=== PATIENT | male | born 1995 | race Caucasian/White ===

== ENCOUNTER 2016-07-23 08:24 | Emergency (ER) ==
[2016-07-23] MEDS ORDERED: NS 1,000 ML IV ONE ×2 (09:28→09:56)
[2016-07-23 09:44] LABS: BASO% 0.1 % (0.0-0.8); EOS# 0.03 X1000 (0.0-0.7); EOS% 0.3 % (0.0-10.0); HEMATOCRIT 49.3 % (42.0-52.0); HEMOGLOBIN 16.8 g/dL (14.0-18.0); LYMPH# 0.45 X1000 (1.2-3.4); LYMPH% 4.4 % (20.5-51.1); MANUAL DIFF NEEDED? NO; MCH 29.2 PG (27-31); MCHC 34.1 g/dL (33-37); MCV 85.7 FL (81-99); MONO# 0.46 X1000 (0.11-0.59); MONO% 4.5 % (1.7-9.3); MPV 8.8 FL (7.4-10.4); NEUT% 90.7 % (42.2-75.2); PLT 267 X1000 (130-400); RBC 5.75 XMIL (4.7-6.1)
[2016-07-23] MEDS ORDERED: ZOFRAN IV ONE (09:54)
[2016-07-23 09:57] LABS: AGAP 13; ALBUMIN 5.1 g/dL (3.5-5.0); ALKALINE PHOSPHATASE 110 U/L (32-122); AMYLASE 51 U/L (20-200); BUN 13 mg/dL (8-22); CALCIUM 9.9 mg/dL (8.8-10.2); CHLORIDE 99 mmol/L (98-107); COSMO 275; GOT 24 U/L (10-34); GPT 27 U/L (10-44); LIPASE 20 U/L (13-60); POTASSIUM 4.2 mmol/L (3.5-5.1); SODIUM 138 mmol/L (136-145); TCO2 26 mmol/L (25-35); TOTAL BILIRUBIN 0.94 mg/dL (0.20-1.00); TOTAL PROTEIN 8.3 g/dL (6.3-8.3)
--- NOTE | 2016-07-23 10:53 | PROVIDER DOCUMENTATION ---
HPI-Abdominal Pain/GI Problem - General Chief Complaint: N/V/D Stated Complaint: VOMITING BLOOD,NAUSEA,DIARRHEA,NO APPETITE Time Seen by Provider: 07/23/16 09:16 Source: patient Allergies/Adverse Reactions: Patient Allergies Allergy/AdvReac Type Severity Reaction Status Date / Time No Known Allergies Allergy Verified 07/23/16 09:22 Home Medications: Home Medication List Medication Instructions Recorded Confirmed Last Taken Type Ciprofloxacin HCl [Cipro] 500 mg PO BID #10 tablet 07/23/16 Unknown Rx Famotidine [Pepcid] 20 mg PO DAILY #20 tablet 07/23/16 Unknown Rx Metronidazole [Flagyl] 500 mg PO BID #20 tablet 07/23/16 Unknown Rx - History of Present Illness-ABD Nature of Presenting Problems: 20 year old WM presents with c/o nausea, vomiting and diarrhea for 4 days. pt report average 3 diarrhea a day and 1-3 episodes of vomiting a day. pt reports appetite due to associated nausea. pt reports he had one episode of blood "streaked" in his diarrhea and upon wiping on Thursday. Denies any additional episodes. Pt reports he was able to eat a ham and cheese sandwich last night, but vomited soon after and was able eat cereal this morning but vomited soon after. pt reports associated dizziness, lightheadedness with standing and walking from the supine position. pt denies travel out of country, sick exposures. denies abdominal pain, cramping. Review of Systems - Adult - REVIEW OF SYSTEMS - ADULT Constitutional: reports: no symptoms reported. denies: chills, fever, fatique Eyes: reports: no symptoms reported. denies: discharge, blurred vision, double vision, redness Ears, Nose, Mouth & Throat: reports: no symptoms reported. denies: ear discharge, ear pain, nose pain, loose teeth, throat pain, throat swelling Cardiovascular: reports: no symptoms reported. denies: chest pain, palpitations , syncope Respiratory: reports: no symptoms reported. denies: chronic cough, cough, shortness of breath, wheezing Gastrointestinal: reports: see HPI, hematemesis, diarrhea, nausea, rectal bleeding, vomiting. denies: abdominal pain, constipation, difficulty swallowing , poor appetite Genitourinary: reports: no symptoms reported. denies: dysuria, hematuria, urgency Musculoskeletal: reports: no symptoms reported. denies: bone pain, joint pain, joint swelling, neck pain Integumentary: reports: no symptoms reported. denies: hives, rash, skin sores/ ulcer Neurological: reports: see HPI, dizziness/vertigo. denies: ataxia, loss of balance, numbness, paresthesia, seizure, slurred speech, syncope, tremors Psychiatric: reports: no symptoms reported Endocrine: reports: no symptoms reported Hematologic/Lymphatic: reports: no symptoms reported Allergic/Immunologic: reports: no symptoms reported All Other Systems: Reviewed and Negative Past History - Adult - PAST MEDICAL HISTORY-ADULT Review of Records: reports: Old Records Reviewed, Nursing Assessment Review, Medications Reviewed, Social history reviewed & non-contributory. Major Childhood Illnesses: reports: denies history Cardiovascular: reports: denies history Respiratory: reports: denies history Gastrointestinal: reports: denies history Obstetrical/Gynecological: reports: denies history Genitourinary: reports: denies history Musculoskeletal: reports: denies history Neurological: reports: denies history Endocrine/Immune: reports: denies history Other Conditions: reports: denies history - FAMILY HISTORY Family History: reviewed, not pertinent - SOCIAL HISTORY Smoking: denies, non-smoker Substance Use: none/never Alcohol Use Frequency: never Physical Exam-General - PHYSICAL EXAM-ADULT Initial Vital Signs Reviewed: Yes - CONSTITUTIONAL General Appearance: appears well, alert, no apparent distress. negative: mild distress, moderate distress, severe distress - EYES Eyes: pink conjunctivae. negative: conjuctival exudate, pale conjunctivae, sclera injected, scleral icterus, subconjunctival hemorrhage - HEAD, EARS, NOSE, MOUTH & THROAT HENMT: normocephalic/atraumatic, moist mucous membranes, normal ENT inspection, TMs normal, pharynx normal. negative: pharyngeal erythema, tonsillar exudate, TM abnormal, TM obscurred by cerumen, frontal tenderness, maxillary tenderness - NECK Neck: non-tender, full range of motion, supple, normal inspection. negative: C- spine tenderness, limited range of motion, tender lateral, tender midline - RESPIRATORY Respiratory: chest non-tender, lungs clear, normal breath sounds, no pleuratic chest pain, no respiratory distress, no accessory muscle use. negative: respiratory distress, decreased breath sounds, accessory muscle use, crackles, rales, rhonchi, stridor, wheezing - CARDIOVASCULAR Cardiovascular: normal peripheral pulses, regular rate, rhythm, tachycardia. negative: no edema, no gallop, no JVD, no murmur - GASTROINTESTINAL (ABDOMEN) Abdominal Exam: normal bowel sounds, non tender, soft, no organomegaly, no pulsatile mass. negative: abnormal bowel sounds, distended, guarding, rigid, rebound, tenderness, hernia, mass, hepatomegaly, spleenomegaly, McBurney's point tenderness, Mariano's sign, obturator sign, psoas, Rovsing's sign - GENITOURINARY Male Genitalia: deferred Rectal Exam: deferred Hemoccult Exam: deferred - LYMPHATIC Lymphatic: negative: cervical node tenderness - MUSCULOSKELETAL Back Exam: normal inspection, no CVA tenderness, no vertebral tenderness. negative: CVA tenderness, decreased range of motion, swelling, vertebral tenderness Extremity: normal range of motion, non-tender, normal gait, normal inspection, no pedal edema, no calf tenderness, normal capillary refill. negative: deformity, erythema, inflammation Peripheral Pulses: radial (R): 3+, radial (L): 3+, dorsalis-pedis (R): 3+, dorsalis-pedis (L): 3+ - SKIN Integumentary: normal color, normal turgor, warm/dry. negative: pallor, petechiae, purpura, rash, swelling, tenderness - NEUROLOGIC Neurologic: grossly normal, no motor/sensory deficits - PSYCHIATRIC Psych/Mental Status: normal mood/affect, normal thought content, normal thought process, oriented x 3 Progress - PLAN OF CARE/RESULTS Progress/Plan/Lab Results: Laboratory Tests 07/23/16 07/23/16 07/23/16 09:19 09:19 11:17 WBC 10.13 RBC 5.75 Hgb 16.8 Hct 49.3 MCV 85.7 MCH 29.2 MCHC 34.1 RDW Std Deviation 12.7 Plt Count 267 MPV 8.8 Immature Gran % (Auto) 0.0 Neut % (Auto) 90.7 H Lymph % (Auto) 4.4 L [place] % (Auto) 4.5 Eos % (Auto) 0.3 Baso % (Auto) 0.1 Immature Gran # (Auto) 0.00 Neut # (Auto) 9.18 H Lymph # (Auto) 0.45 L [place] # (Auto) 0.46 Eos # (Auto) 0.03 Baso # (Auto) 0.01 Sodium 138 Potassium 4.2 Chloride 99 Carbon Dioxide 26 Anion Gap 13 BUN 13 Creatinine 0.9 Estimated GFR/1.73 m2 > 60 BUN/Creatinine Ratio 14 Glucose 92 Calculated Osmolality 275 Calcium 9.9 Total Bilirubin 0.94 AST 24 ALT 27 Alkaline Phosphatase 110 Total Protein 8.3 Albumin 5.1 H Globulin 3.2 Albumin/Globulin Ratio 1.6 Amylase 51 Lipase 20 Urine Source CLEAN CATCH Urine Color YELLOW Urine Turbidity CLEAR Urine pH 7.0 Ur Specific [place] 1.021 Urine Protein NEGATIVE Ur Glucose (Stick) NEGATIVE Ur Ketones (Stick) 20 A Urine Blood NEGATIVE Urine Nitrite NEGATIVE Urine Bilirubin NEGATIVE Urobilinogen Dipstick NORMAL Urine Leukocytes NEGATIVE Urine WBC (Auto) <10 Urine RBC (Auto) <10 U Epithel Cells (Auto) <10 Urine Bacteria (Auto) NEGATIVE Orders Category Date Time Status Saline Loc DIRECTED Care 07/23/16 09:27 Active NPO Diet 07/23/16 09:27 Completed FLAT/UPRIGHT ABD/1 VIEW CHEST [RAD] Stat Exams 07/23/16 09:56 Draft AMYLASE [CHEM] Stat Lab 07/23/16 09:19 Completed CBC WITH ELECTRONIC DIFF [HEME] Stat Lab 07/23/16 09:19 Completed COMPREHENSIVE METABOLIC PANEL [CHEM] Stat Lab 07/23/16 09:19 Completed Flu Swab [INFLUENZA SCREEN A/B] Stat Lab 07/23/16 08:32 Completed LIPASE [CHEM] Stat Lab 07/23/16 09:19 Completed URINALYSIS W/POSS RFLX CULT [URINALYSIS] Stat Lab 07/23/16 11:17 Completed 0.9% Sodium Chloride Inj [Ns] 1,000 ml Med 07/23/16 09:28 Discontinued IV 999 mls/hr 0.9% Sodium Chloride Inj [Ns] 1,000 ml Med 07/23/16 09:56 Discontinued IV 999 mls/hr Famotidine [Pepcid] Med 07/23/16 11:47 Discontinued 20 mg PO NOW ONE Ondansetron [Zofran] Med 07/23/16 09:54 Discontinued 4 mg IV NOW ONE Vital Signs - 24 hr 07/23/16 07/23/16 07/23/16 08:29 09:29 11:59 Temperature 97.7 F 98.8 F Pulse Rate 97 H 90 Pulse Rate [ 95 H Sitting] Pulse Rate [ 113 H Standing] Pulse Rate [ 93 H Supine] Respiratory 18 18 Rate Blood Pressure 114/71 126/73 Blood Pressure 128/50 [Sitting] Blood Pressure 108/65 [Standing] Blood Pressure 124/65 [Supine] O2 Sat by Pulse 100 [address] Oximetry Review[address] case [address] Vann, agrees with plan of care and treatment. - XRAY 1 XRAY Study: Chest, Abdomen Impression: Normal (chest), Abnormal (gastric distention) Departure - Departure Time of Disposition Order: 11:39 DIAGNOSIS: Infectious diarrhea in adult patient Disposition: HOME 01 Certified Medical Emergency: Emergent Condition: Stable Additional Instructions: No work for 2 days. Drink plenty of fluids, start with bland foods, no spicy foods. Follow up with your primary care doctor before the weekend. ED Follow Up Instructions: You have been treated by a care provider in the Emergency Department. These instructions are being provided to you so you can have an understanding of how to care for yourself upon discharge. Upon discharge from the Emergency Department, you are responsible for making arrangements for follow-up care by a physician of your choice. Take all prescribed medications as directed. Return to the Emergency Department immediately for any new or worsening symptoms. You may call the Physician Referral phone number at [phone] to obtain a list of Physicians who are taking new patients. Prescriptions: Ciprofloxacin HCl [Cipro] 500 mg PO BID #10 tablet Metronidazole [Flagyl] 500 mg PO BID #20 tablet Famotidine [Pepcid] 20 mg PO DAILY #20 tablet Referrals: None,PCP [Primary Care Provider] - [facility] [NON-[facility]FF] - Marilyn Ashford MD [STAFF PHYSICIAN] - Forms: Return to School/Parent Work Instructions: Diarrhea, [id number] Attestation - Physician/ MARSHAL Attestation Patient care was provided by Advanced Practice Provider:: Yes Advanced Practice Provider:: Megan Alcantara Advanced Practice Provider documentation review:: The Mid-level provider documentation, treatment plan and medical decision making was reviewed by the physician who agrees with all treatment and medical decision making by the MLP.
--- NOTE | 2016-07-23 11:17 | Diag Imaging Result Document ---
PROCEDURE NAME: FLAT/UPRIGHT ABD/1 VIEW CHEST - 07/23/2016 FRONTAL CHEST X-RAY AND 2 VIEWS OF THE ABDOMEN: COMPARISON: None. FINDINGS: The chest is clear. The stomach is somewhat distended with gas. No bowel obstruction otherwise. No evidence of free air. IMPRESSION: Gastric distention, nonspecific.
[2016-07-23 11:24] LABS: URINE CULTURE NEEDED? NO; URINE MICRO REVIEW NEEDED? NO; URINE SOURCE CLEAN CATCH
[2016-07-23 11:33] LABS: BILIRUBIN URINE NEGATIVE (NEGATIVE); BLOOD URINE NEGATIVE (NEGATIVE); COLOR YELLOW; GLUCOSE URINE NEGATIVE (NEGATIVE); LEUKOCYTES URINE NEGATIVE (NEGATIVE); NITRITE URINE NEGATIVE (NEGATIVE); PROTEIN URINE NEGATIVE (NEGATIVE); SP GRAVITY URINE 1.021; TURBIDITY URINE CLEAR (CLEAR); UR EPITHELIAL CELLS <10 /HPF (<10); URINE BACTERIA NEGATIVE /HPF; URINE RBC <10 /HPF (<10); URINE WBC <10 /HPF (<10); UROBILINOGEN URINE NORMAL (NORMAL)
[2016-07-23] MEDS ORDERED: PEPCID PO ONE (11:47)
[2016-07-23 12:00] VITALS: BP 126/73
== END 2016-07-23 11:59 | disposition home or self-care (01) ==
LOC: ED 08:24
DX: A09 Infectious gastroenteritis and colitis, unspecified (principal); R11.2 Nausea with vomiting, unspecified; K92.0 Hematemesis; K62.5 Hemorrhage of anus and rectum; R42 Dizziness and giddiness; R00.0 Tachycardia, unspecified
CPT/HCPCS: 74022; 80053; 81001; 82150; 83690; 85025; 87804; J2405; J7030